=== PATIENT | male | born 1975 | race Two or more races ===

== ENCOUNTER 2017-09-29 04:06 | Emergency (ER) | payer SELFPAY ==
[~2017-09-29] VITALS: Ht 182.9 cm; Wt 94.3 kg
[2017-09-29 04:20] VITALS: BP 128/87
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
[2017-09-29] MEDS ORDERED: Ketorolac 30mg Inj IV ONE (04:45)
[2017-09-29 04:52] LABS: APPEARANCE,URINE CLEAR; BASOPHILS % (AUTO) 1.4 % (0.0-2.0); EOSINOPHILS % (AUTO) 3.8 % (0.0-3.0); KETONES,URINE NEGATIVE (NEGATIVE); LEUKOCYTE ESTERASE ,URINE 1+ (NEGATIVE); LYMPHOCYTES % (AUTO) 24.5 % (20.0-45.0); MEAN CORPUSCULAR HEMOGLOBIN 29.8 PG (27.0-31.0); MEAN CORPUSCULAR HGB CONC 33.2 G/DL (32.0-36.0); MEAN CORPUSCULAR VOLUME 90 FL (80-99); MEAN PLATELET VOLUME 12.4 FL (6.5-10.1); MONOCYTES % (AUTO) 8.4 % (1.0-10.0); NEUTROPHILS % (AUTO) 61.9 % (45.0-75.0); NITRITE,URINE NEGATIVE (NEGATIVE); PH,URINE 5 (4.5-8.0); PLATELET COUNT 226 K/UL (150-450); PROTEIN,URINE 2+ (NEGATIVE); RED BLOOD COUNT 5.02 M/UL (4.70-6.10); RED CELL DISTRIBUTION WIDTH 12.7 % (11.6-14.8); UROBILINOGEN,URINE NORMAL MG/DL (0.0-1.0); WHITE BLOOD COUNT 12.3 K/UL (4.8-10.8)
[2017-09-29 05:06] LABS: ANION GAP 6 mmol/L (5-15); CALCIUM 9.1 MG/DL (8.5-10.1); CARBON DIOXIDE 30 MMOL/L (21-32); CHLORIDE 109 MMOL/L (98-107); CREATININE 1.2 MG/DL (0.55-1.30); GLOMERULAR FILTRATION RATE > 60 mL/min (>60); POTASSIUM 4.1 MMOL/L (3.5-5.1); SODIUM 145 MMOL/L (136-145)
[2017-09-29 05:08] LABS: BACTERIA,URINE FEW /HPF; RBC,URINE 0-2 /HPF (0 - 0)
[2017-09-29 05:09] LABS: CALCIUM OXALATE CRYSTALS,UR MODERATE /LPF
[2017-09-29 05:15] VITALS: BP 115/76
[2017-09-29 05:17] LABS: ALANINE AMINOTRANSFERASE 39 U/L (12-78); ALBUMIN/GLOBULIN RATIO 0.8 (1.0-2.7); ASPARTATE AMINO TRANSFERASE 18 U/L (15-37); TOTAL PROTEIN 8.3 G/DL (6.4-8.2)
[2017-09-29] MEDS ORDERED: ALBUTEROL SULF8.5 GM INH (06:25)
[2017-09-29] MEDS ORDERED: Ipratropium 0.02% Inh Soln 2.5ml UD HHN ONE (06:30)
[2017-09-29] MEDS ORDERED: Albuterol ud Inhalation HHN ONE (06:30)
[2017-09-29 06:50] VITALS: BP 130/85
[2017-09-29 07:00] VITALS: BP 130/85
--- NOTE | 2017-09-29 11:05 | Diagnostic Imaging Report ---
Indication: Chest pain Technique: XRAY Chest 1v Comparison: None Findings: Heart size and mediastinal contours are within normal limits given technique. There is no focal consolidation, pneumothorax or pleural effusion. Osseous structures demonstrate no acute abnormality. Impression: No radiographic evidence of acute cardiopulmonary disease.
--- NOTE | 2017-10-10 19:17 | Cardiology Report ---
APPROVED REPORT EKG Measurement Heart [id number] Sinus tachycardia Otherwise normal ECG
== END 2017-09-29 07:00 | disposition home or self-care (01) ==
LOC: EMR 04:56
DX: R07.9 Chest pain, unspecified (principal)
CPT/HCPCS: 36415; 71010; 80053; 81003; 83880; 84484; 85025; 93005; 94640; 94664; 96374; 99284; J1885